=== PATIENT | male | born 1965 | race Caucasian/White ===

== ENCOUNTER 2018-12-14 14:23 | Emergency (ER) | payer MEDICAID ==
[~2018-12-14] VITALS: Ht 175.3 cm; Wt 95.5 kg
[2018-12-14] MEDS ORDERED: DIABETIC PO (14:26)
[2018-12-14] MEDS ORDERED: HTN PO (14:26)
[2018-12-14] MEDS ORDERED: ASPI81 PO (14:26)
[2018-12-14] MEDS ORDERED: ASPIRIN 81 MG CHEWABLE TABLET PO ONE (15:15)
[2018-12-14 15:25] LABS: BASOPHILS % (AUTO) 0.8 % (0.0-2.0); EOSINOPHILS % (AUTO) 4.2 % (1.0-6.0); HEMATOCRIT 30.2 % (41-53); HEMOGLOBIN 10.4 g/dL (13.5-17.5); LYMPHOCYTES # (AUTO) 1.3 K/uL (1.0-4.8); LYMPHOCYTES % (AUTO) 17.7 % (22.0-44.0); MEAN CORPUSCULAR HEMOGLOBIN 33.5 pg (26.0-34.0); MEAN CORPUSCULAR HGB CONC 34.4 G/dL (31.0-37.0); MEAN CORPUSCULAR VOLUME 97 fL (80-100); MONOCYTES # (AUTO) 0.6 K/uL (0.1-1.0); MONOCYTES % (AUTO) 8.6 % (2.0-9.0); NEUTROPHILS # (AUTO) 5.1 K/uL (1.8-7.7); NEUTROPHILS % (AUTO) 68.7 % (40.0-70.0); PLATELET COUNT (AUTO) 139 K/uL (150-450); RED BLOOD CELL COUNT(AUTO) 3.11 MIL/uL (4.50-5.90)
[2018-12-14 15:27] LABS: APPEARANCE,URINE CLOUDY (CLEAR); BILIRUBIN,URINE NEGATIVE (NEGATIVE); GLUCOSE, URINE (UA) NEGATIVE (NEGATIVE); KETONES,URINE NEGATIVE (NEGATIVE); LEUKOCYTE ESTERASE ,URINE MODERATE (NEGATIVE); NITRATE,URINE NEGATIVE (NEGATIVE); OCCULT BLOOD,URINE SMALL (NEGATIVE); PH,URINE 5.5 (5.0-8.0); PROTEIN,URINE NEGATIVE (NEGATIVE); UROBILINOGEN,URINE 0.2 mg/dL (<=1.0)
[2018-12-14 15:33] LABS: RBC,URINE 0-2 /HPF (0-2)
[2018-12-14 15:34] LABS: BACTERIA,URINE Moderate /HPF (None Seen); SQUAMOUS EPITHELIAL CELL,UR Few /LPF (None Seen)
[2018-12-14 15:59] LABS: CALCIUM, TOTAL 8.3 mg/dL (8.8-10.5); CREATININE 1.69 mg/dL (0.60-1.30); POTASSIUM 3.8 mmol/L (3.5-5.1)
[2018-12-14 16:02] LABS: ALBUMIN 3.1 g/dL (3.4-5.0); BILIRUBIN,TOTAL 0.5 mg/dL (0.1-1.0); TOTAL PROTEIN, SERUM 6.9 g/dL (6.4-8.2)
[2018-12-14] MEDS ORDERED: CefTRIAXone 1 GM/DEXTROSE 50 ML IV ONE (16:15)
[2018-12-14 17:13] VITALS: BP 127/57
== END 2018-12-14 18:04 | disposition home or self-care (01) ==
LOC: EMS 14:24
DX: N39.0 Urinary tract infection, site not specified (principal); R07.89 Other chest pain; M79.662 Pain in left lower leg; E11.9 Type 2 diabetes mellitus without complications; I11.9 Hypertensive heart disease without heart failure; F17.210 Nicotine dependence, cigarettes, uncomplicated; Z88.0 Allergy status to penicillin; Z79.82 Long term (current) use of aspirin; Z59.0 Homelessness; Z79.84 Long term (current) use of oral hypoglycemic drugs; Z79.899 Other long term (current) drug therapy
CPT/HCPCS: 36415; 71045; 80053; 81001; 82550; 82962; 83880; 84484; 85025; 87086; 93005; 96365; 99285; 99406; J0696; 82948

== ENCOUNTER 2020-03-20 20:30 | Emergency (ER) | payer SELFPAY ==
[~2020-03-20] VITALS: Ht 175.3 cm; Wt 95.5 kg
[~2020-03-20 20:30] MED LIST: ASPI-728 PO; DIABETIC PO; HTN PO
[2020-03-20 21:26] LABS: GLUCOSE,POINT OF CARE 76 MG/DL (70-110)
[2020-03-21 06:11] VITALS: BP 145/80
== END 2020-03-21 07:07 | disposition home or self-care (01) ==
LOC: EMS 20:32
DX: F10.129 Alcohol abuse with intoxication, unspecified (principal); B86 Scabies; F17.210 Nicotine dependence, cigarettes, uncomplicated; E11.9 Type 2 diabetes mellitus without complications; I11.9 Hypertensive heart disease without heart failure; Z88.0 Allergy status to penicillin; Z79.82 Long term (current) use of aspirin
CPT/HCPCS: 99406

== ENCOUNTER 2020-12-13 16:04 | Inpatient (IN) | payer MEDICAID, SELFPAY ==
[~2020-12-13] VITALS: Ht 175.3 cm; Wt 91.5 kg
[2020-12-13] MEDS ORDERED: LORazepam 2 MG/ML VIAL IVP ONE (17:00)
[2020-12-13] MEDS ORDERED: MAGNESIUM SULFATE 2 GM, MVI, ADULT NO.1 WITH VIT K 10 ML, THIAMINE 100 MG, FOLIC ACID 1... IV ONE ×10 (17:00→21:30)
[2020-12-13 17:13] LABS: COVID AG,FIA SOURCE NASOPHARYNGEAL
[2020-12-13 17:28] LABS: APPEARANCE,URINE CLEAR (CLEAR); BILIRUBIN,URINE NEGATIVE (NEGATIVE); GLUCOSE, URINE (UA) NEGATIVE (NEGATIVE); KETONES,URINE NEGATIVE (NEGATIVE); LEUKOCYTE ESTERASE ,URINE NEGATIVE (NEGATIVE); NITRATE,URINE NEGATIVE (NEGATIVE); OCCULT BLOOD,URINE MODERATE (NEGATIVE); PROTEIN,URINE NEGATIVE (NEGATIVE); UROBILINOGEN,URINE 0.2 mg/dL (<=1.0)
[2020-12-13 17:33] LABS: AMPHET/METH SCREEN,URINE NEGATIVE (NEGATIVE); BARBITURATE SCREEN, URINE POSITIVE (NEGATIVE); BENZODIAZEPINES SCREEN,URINE POSITIVE (NEGATIVE); CANNABINOID SCREEN,URINE NEGATIVE (NEGATIVE); COCAINE SCREEN,URINE NEGATIVE (NEGATIVE); METHADONE SCREEN, URINE NEGATIVE (NEGATIVE); OPIATE SCREEN,URINE NEGATIVE (NEGATIVE)
[2020-12-13 17:34] LABS: PHENCYCLIDINE SCREEN,URINE NEGATIVE (NEGATIVE)
[2020-12-13 17:41] LABS: BASOPHILS % (AUTO) 1.8 % (0.0-2.0); EOSINOPHILS % (AUTO) 2.5 % (1.0-6.0); HEMATOCRIT 27.4 % (41-53); HEMOGLOBIN 9.4 g/dL (13.5-17.5); LYMPHOCYTES # (AUTO) 2.1 K/uL (1.0-4.8); LYMPHOCYTES % (AUTO) 24.4 % (22.0-44.0); MEAN CORPUSCULAR HEMOGLOBIN 30.6 pg (26.0-34.0); MEAN CORPUSCULAR HGB CONC 34.3 G/dL (31.0-37.0); MEAN CORPUSCULAR VOLUME 89 fL (80-100); MONOCYTES # (AUTO) 0.6 K/uL (0.1-1.0); MONOCYTES % (AUTO) 6.6 % (2.0-9.0); NEUTROPHILS # (AUTO) 5.5 K/uL (1.8-7.7); NEUTROPHILS % (AUTO) 64.7 % (40.0-70.0); PLATELET COUNT (AUTO) 413 K/uL (150-450); RED BLOOD CELL COUNT(AUTO) 3.08 MIL/uL (4.50-5.90); RED CELL DISTRIBUTION WIDTH 15.9 % (11.5-14.5)
[2020-12-13 17:43] LABS: BACTERIA,URINE None Seen /HPF (None Seen); RBC,URINE None Seen /HPF (0-2); SQUAMOUS EPITHELIAL CELL,UR Few /LPF (None Seen); WBC,URINE None Seen /HPF (0-5)
[2020-12-13 17:55] LABS: PROTHROMBIN TIME 10.9 SEC (9.4-11.6)
[2020-12-13 18:01] LABS: CALCIUM, TOTAL 9.3 mg/dL (8.8-10.5); CREATININE 1.71 mg/dL (0.60-1.30); POTASSIUM 4.3 mmol/L (3.5-5.1)
[2020-12-13 18:07] LABS: ALBUMIN 2.9 g/dL (3.4-5.0); BILIRUBIN,TOTAL 0.3 mg/dL (0.1-1.0); MAGNESIUM 1.9 mg/dL (1.80-2.40); TOTAL PROTEIN, SERUM 9.1 g/dL (6.4-8.2)
[2020-12-13 18:12] LABS: GLUCOSE,POINT OF CARE 76 MG/DL (70-110)
[2020-12-13 18:19] LABS: AMMONIA 22 umol/L (11-32)
[2020-12-13 18:32] LABS: TROPONIN I < 0.02 ng/mL (0.00-0.05)
[2020-12-13] MEDS ORDERED: 0.9% SODIUM CHLORIDE 10 ML SYRINGE IVP PRN (19:00)
[2020-12-13] MEDS ORDERED: ONDANSETRON HCL 4 MG/2 ML VIAL IVP PRN ×2 (19:00→20:15)
[2020-12-13] MEDS ORDERED: ACETAMINOPHEN 325 MG TABLET PO PRN ×2 (19:00→20:15)
[2020-12-13] MEDS ORDERED: MORPHINE SULFATE 2 MG/ML SYRINGE IVP PRN (20:15)
[2020-12-13] MEDS ORDERED: ZOLPIDEM TARTRATE 5 MG TABLET PO PRN (20:15)
[2020-12-13] MEDS ORDERED: BISACODYL 10 MG RECTAL RECTAL SUPPOSITORY PR PRN (20:15)
[2020-12-13] MEDS ORDERED: HYDROCODONE/ACETAMINOPHEN 5-325 MG TABLET PO PRN (20:15)
[2020-12-13] MEDS ORDERED: DEXTROSE 50%-WATER 25 GM/50 ML SYRINGE IVP PRN (20:15)
[2020-12-13] MEDS ORDERED: MAGNESIUM HYDROXIDE SUSPENSION 30 ML UDCUP PO PRN (20:15)
[2020-12-13] MEDS ORDERED: INSULIN LISPRO 100 UNITS/ML SQ PRN (20:15)
[2020-12-13] MEDS: DOCUSATE SODIUM 100 MG CAPSULE PO SCH (21:00)
[2020-12-13 22:04] VITALS: BP 181/111
[2020-12-13] MEDS ORDERED: INFLUENZA VIRUS VACCINE QVS 2020-21 (6MO+)/PF 60 MCG/0.5 ML SYRINGE IM ONE (23:00)
[2020-12-13] MEDS ORDERED: HydrALAZINE HCL 10 MG TABLET PO PRN (23:00)
[2020-12-13] MEDS: LORazepam 2 MG/ML VIAL IM PRN (23:04)
[2020-12-13] MEDS: HEPARIN SODIUM,PORCINE 5,000 UNITS/ML VIAL SQ SCH (23:06)
[2020-12-14 04:54] VITALS: BP 145/94
[2020-12-14 07:41] VITALS: BP 156/87
[2020-12-14 08:00] LABS: BASOPHILS % (AUTO) 1.5 % (0.0-2.0); EOSINOPHILS % (AUTO) 3.9 % (1.0-6.0); HEMATOCRIT 24.4 % (41-53); HEMOGLOBIN 8.5 g/dL (13.5-17.5); LYMPHOCYTES # (AUTO) 1.5 K/uL (1.0-4.8); LYMPHOCYTES % (AUTO) 18.4 % (22.0-44.0); MEAN CORPUSCULAR HEMOGLOBIN 30.7 pg (26.0-34.0); MEAN CORPUSCULAR HGB CONC 34.7 G/dL (31.0-37.0); MEAN CORPUSCULAR VOLUME 89 fL (80-100); MONOCYTES # (AUTO) 0.7 K/uL (0.1-1.0); NEUTROPHILS # (AUTO) 5.5 K/uL (1.8-7.7); NEUTROPHILS % (AUTO) 67.2 % (40.0-70.0); PLATELET COUNT (AUTO) 350 K/uL (150-450); RED BLOOD CELL COUNT(AUTO) 2.76 MIL/uL (4.50-5.90)
[2020-12-14] MEDS: PANTOPRAZOLE SODIUM 40 MG DR TABLET PO SCH (08:23)
[2020-12-14] MEDS: AmLODIPine BESYLATE 5 MG TABLET PO SCH (08:23)
[2020-12-14] MEDS: ASPIRIN 81 MG CHEWABLE TABLET PO SCH (08:24)
[2020-12-14] MEDS: HEPARIN SODIUM,PORCINE 5,000 UNITS/ML VIAL SQ SCH ×3 (08:25→23:21)
[2020-12-14] MEDS: DOCUSATE SODIUM 100 MG CAPSULE PO SCH ×2 (08:30→20:47)
[2020-12-14 08:58] LABS: BILIRUBIN,TOTAL 0.3 mg/dL (0.1-1.0); CALCIUM, TOTAL 8.3 mg/dL (8.8-10.5); CREATININE 1.86 mg/dL (0.60-1.30); MAGNESIUM 2.3 mg/dL (1.80-2.40); PHOSPHORUS 4.3 mg/dL (2.5-4.9); POTASSIUM 4.2 mmol/L (3.5-5.1); TOTAL PROTEIN, SERUM 7.5 g/dL (6.4-8.2)
[2020-12-14 09:07] LABS: ALBUMIN 2.4 g/dL (3.4-5.0)
[2020-12-14 11:12] VITALS: BP 159/89
[2020-12-14] MEDS: LORazepam 2 MG/ML VIAL IM PRN (11:17)
[2020-12-14 15:08] VITALS: BP 145/95
[2020-12-14] MEDS: ChlordiazePOXIDE HCL 25 MG CAPSULE PO SCH ×2 (15:36→20:47)
[2020-12-14 20:43] VITALS: BP 147/96
[2020-12-15 00:46] VITALS: BP 105/56
[2020-12-15 05:06] VITALS: BP 143/94
[2020-12-15 07:07] LABS: CALCIUM, TOTAL 8.8 mg/dL (8.8-10.5); CREATININE 2.07 mg/dL (0.60-1.30); POTASSIUM 4.1 mmol/L (3.5-5.1)
[2020-12-15] MEDS: PANTOPRAZOLE SODIUM 40 MG DR TABLET PO SCH (07:45)
[2020-12-15] MEDS: ChlordiazePOXIDE HCL 25 MG CAPSULE PO SCH (07:45)
[2020-12-15] MEDS: DOCUSATE SODIUM 100 MG CAPSULE PO SCH (07:45)
[2020-12-15] MEDS: ASPIRIN 81 MG CHEWABLE TABLET PO SCH (07:45)
[2020-12-15] MEDS: AmLODIPine BESYLATE 5 MG TABLET PO SCH (07:45)
[2020-12-15] MEDS: HEPARIN SODIUM,PORCINE 5,000 UNITS/ML VIAL SQ SCH (07:45)
[2020-12-15 07:47] VITALS: BP 172/101
[2020-12-15] MEDS ORDERED: 1: MAGNESIUM SULFATE 2 GM, MVI, ADULT NO.1 WITH VIT K 10 ML, THIAMINE 100 MG, FOLIC ACID IV SCH ×5 (11:00)
[2020-12-15] MEDS ORDERED: HydrALAZINE HCL 10 MG TABLET PO PRN (11:00)
[2020-12-15] MEDS ORDERED: ChlordiazePOXIDE HCL 25 MG CAPSULE PO PRN (11:00)
[2020-12-15] MEDS ORDERED: DOCUSATE SODIUM 100 MG CAPSULE PO PRN (11:00)
[2020-12-15] MEDS ORDERED: AmLODIPine BESYLATE 5 MG TABLET PO ONE (11:00)
[2020-12-15] MEDS ORDERED: AmLODIPine BESYLATE 10 MG TABLET PO SCH (21:00)
[2020-12-17 20:48] LABS: GLUCOMETER DEV NAME(LOC) 5S.1; GLUCOSE,POINT OF CARE 84 MG/DL (70-110)
[2020-12-17 20:48] LABS: GLUCOMETER DEV NAME(LOC) 5S.1; GLUCOSE,POINT OF CARE 102 MG/DL (70-110)
[2020-12-17 20:48] LABS: GLUCOMETER DEV NAME(LOC) 5S.1; GLUCOSE,POINT OF CARE 122 MG/DL (70-110)
== END 2020-12-15 11:00 | disposition home or self-care (01) | DRG 469 ==
LOC: EMS 16:04 → 5S 19:00
PROVIDERS: ADMIT Internal Medicine; ATTEND Internal Medicine
DX: N17.0 Acute kidney failure with tubular necrosis (principal); F10.239 Alcohol dependence with withdrawal, unspecified; I10 Essential (primary) hypertension; E87.1 Hypo-osmolality and hyponatremia; D64.9 Anemia, unspecified; E11.9 Type 2 diabetes mellitus without complications; Z20.822 Contact with and (suspected) exposure to COVID-19; Z79.899 Other long term (current) drug therapy; Z88.0 Allergy status to penicillin; Z79.82 Long term (current) use of aspirin
CPT/HCPCS: 70450; 83735; 84100; 87081; 87426; 93005; 97162; 99291; G0480; J1644; J2060; J2270; J3411; J3475; J3490; J7030; 36415-L1; 36415-TC; 71045-TC